=== PATIENT | female | born 1975 | race Caucasian/White ===

== ENCOUNTER 2018-08-11 17:14 | Emergency (ER) | payer OTHER ==
[~2018-08-11] VITALS: Ht 157.5 cm; Wt 79.4 kg
[2018-08-11 18:01] LABS: BASOPHILS % 0.3 % (0.0-1.0); EOSINOPHILS # (AUTO) 0.1 (0.0-0.4); EOSINOPHILS % 1.5 % (0.0-6.0); HEMATOCRIT 44.1 % (34.2-44.1); LYMPHOCYTES # (AUTO) 0.7 (1.0-3.2); LYMPHOCYTES % 7.6 % (18.0-39.1); MEAN CORPUSCULAR HEMOGLOBIN 32.4 pg (28-32); MEAN CORPUSCULAR HGB CONC 36.3 g/dL (31-35); MEAN CORPUSCULAR VOLUME 89.3 fL (81-99); MONOCYTES # (AUTO) 0.4 (0.2-0.8); MONOCYTES % 4.9 % (4.4-11.3); NEUTROPHILS # (AUTO) 7.6 (2.1-6.9); NEUTROPHILS % 85.4 % (38.7-80.0); PLATELET COUNT 164 x10e3/uL (140-360); RED BLOOD COUNT 4.94 x10e6/uL (3.6-5.1); RED CELL DISTRIBUTION WIDTH 13.1 % (11.7-14.4)
[2018-08-11 18:23] LABS: ALANINE AMINOTRANSFERASE 21 IU/L (0-55); ALBUMIN 3.8 g/dL (3.5-5.0); ALBUMIN/GLOBULIN RATIO 1.1 (0.8-2.0); ALKALINE PHOSPHATASE 81 IU/L (40-150); ANION GAP 14.7 mmol/L (8-16); BLOOD UREA NITROGEN 7 mg/dL (7-26); BUN/CREATININE RATIO 10 (6-25); CALCIUM 9.7 mg/dL (8.4-10.2); CARBON DIOXIDE 22 mmol/L (22-29); CHLORIDE 103 mmol/L (98-107); CREATININE, SERUM 0.68 mg/dL (0.57-1.11); EST GLOMERULAR FILTRATION RATE > 60 ML/MIN (60-); GLUCOSE 90 mg/dL (74-118); POTASSIUM 3.7 mmol/L (3.5-5.1); SODIUM 136 mmol/L (136-145)
[2018-08-11] MEDS ORDERED: ACETAMINOPHEN 325 MG TAB PO ONE (18:30)
[2018-08-11 18:53] LABS: BILIRUBIN,URINE NEGATIVE (NEGATIVE); CLARITY,URINE SL CLOUDY (CLEAR); COLOR,URINE YELLOW (YELLOW); KETONES,URINE NEGATIVE (NEGATIVE); LEUKOCYTE ESTERASE ,URINE 1+ (NEGATIVE); NITRITE,URINE NEGATIVE (NEGATIVE); PROTEIN,URINE DIPSTICK NEGATIVE (NEGATIVE); URINE UROBILINOGEN 0.2 mg/dL (0.2 - 1)
[2018-08-11 19:03] LABS: BACTERIA,URINE MODERATE /HPF; EPITHELIAL CELLS,URINE FEW /LPF
[2018-08-11] MEDS ORDERED: SODIUM CHLORIDE 0.9% 50ML 50 ML ONE (19:08)
[2018-08-11] MEDS ORDERED: IOPAMIDOL 370 MG/ML 200 ML INFUS..BTL INJ ONE (19:08)
--- NOTE | 2018-08-11 20:03 | Diagnostic Imaging Report ---
EXAMINATION: CT of the abdomen and pelvis with contrast. TECHNIQUE: Spiral CT images of the abdomen and pelvis were performed from the lung bases to the lesser trochanters after the intravenous administration of 100 cc of Isovue 370. Coronal and sagittal reformatted images were obtained. COMPARISON: None. CLINICAL HISTORY:Two-day history of abdominal pain, subcutaneous worsening, 42-year-old female DISCUSSION: ABDOMEN/PELVIS: LOWER THORAX:Unremarkable. HEPATOBILIARY: Focal hypodensity in the right hepatic lobe (2, image 18) is nonspecific. No intra or extrahepatic biliary ductal dilation. GALLBLADDER: No radio-opaque stones or sludge. No wall thickening. SPLEEN: No splenomegaly. PANCREAS: No focal masses or ductal dilatation. ADRENALS: No adrenal nodules. KIDNEYS/URETERS: No hydronephrosis, stones, or solid mass lesions. PELVIC ORGANS/BLADDER: The bladder is normal. Fluid-filled tubular structure adjacent to the left adnexa may represent a loop bowel or hydrosalpinx. Nonspecific fat stranding in the low pelvis with free fluid in the cul-de-sac. PERITONEUM/RETROPERITONEUM: No free air or fluid. LYMPH NODES: No intra-abdominal, retroperitoneal, pelvic or inguinal lymphadenopathy. VESSELS: The celiac trunk,superior and inferior mesenteric and bilateral renal arteries are patent The portal, superior mesenteric and splenic veins are patent. GI TRACT: Tiny gastric diverticulum. BONES AND SOFT TISSUE: No bony destructive lesions. No soft tissue abnormalities. IMPRESSION: Dilated tubular structure in the left adnexa may represent hydrosalpinx. Trace reactive fluid in the pelvis. Consider pelvic ultrasound for further evaluation. Nonspecific hypodensity in the right hepatic lobe, statistically this will represent a cyst. Signed by: Miguel Reaglado MD on 08/11/2018 8:00 PM
[2018-08-11] MEDS ORDERED: CEFTRIAXONE SOD 1 GM/NS 50 ML 50 ML IV SCH (20:15)
[2018-08-11] MEDS ORDERED: CEFTRIAXONE SOD 1 GM VIAL IV SCH (21:00)
--- NOTE | 2018-08-11 23:12 | Diagnostic Imaging Report ---
EXAM: Transabdominal and Transvaginal Pelvic Ultrasound INDICATION: ^ABDOMINAL TENDERNESS ^N COMPARISON: CT abdomen and pelvis 08/11/2018 TECHNIQUE: Grayscale transverse and sagittal transabdominal and transvaginal images were obtained of the pelvis. Transvaginal imaging was medically necessary to better evaluate the endometrium. CLINICAL HISTORY: 42 year old G3, ; last menstrual period: 08/06/2018. FINDINGS: Uterus: Orientation: Anteverted Size: 7.8 x 4.2 x 5.7 cm, Normal Mass: None Cervix: Nabothian cysts Endometrium: Thickness: 0.3 cm, Normal. Appearance: Homogeneous echotexture without focal thickening. Right ovary: Size: 2.7 x 2.4 x 2.7 cm Mass/Cyst: None Left ovary: Not visualized. Adnexa: Unremarkable. The previously described tubular structure on CT performed same date is not seen in the current exam. Cul-de-sac: Mild amount of free fluid in the pelvic cul-de-sac. IMPRESSION: 1. No corresponding finding on ultrasound to the previously described tubular structure on CT performed same date, which likely represented a loop of bowel. 2. Mild amount of free fluid in the pelvic cul-de-sac. 3. Left ovary was not visualized as it is obscured by overlying bowel gas. Signed by: Dr. Fito Lundy M.D. on 08/11/2018 11:09 PM
[2018-08-11] MEDS ORDERED: IBUPROFEN400 MG PO (23:24)
[2018-08-11] MEDS ORDERED: MACROBID 100 M100 MG PO (23:55)
[2018-08-12 00:18] VITALS: BP 116/80
== END 2018-08-12 00:22 | disposition home or self-care (01) ==
LOC: ER 17:14
DX: R10.84 Generalized abdominal pain (principal); N30.91 Cystitis, unspecified with hematuria; F17.210 Nicotine dependence, cigarettes, uncomplicated
CPT/HCPCS: 36415; 74177; 76830; 80053; 81001; 83605; 84702; 85025; 87040; 99284; J0696; Q9967